=== PATIENT | female | born 1970 | race Caucasian/White ===

== ENCOUNTER 2019-11-19 10:34 | Emergency (ER) | payer BC ==
[2019-11-19 11:00] LABS: #Basophils 0.1 thou/uL (0.0-0.2); #Eosinphils 1.6 thou/uL (0.0-0.7); #Lymphocytes 3.9 thou/uL (1.20-3.40); #Monocytes 1.2 thou/uL (0.11-0.59); #Neutrophils 7.2 thou/uL (1.40-6.50); %Basophils 0.9 % (0.0-1.0); %Eosinophils 11.4 % (0.0-10.0); %Lymphocytes 27.5 % (21.0-51.0); %Monocytes 8.9 % (0.0-10.0); %Neutrophils 51.3 % (42.0-75.0); Hemoglobin 12.6 g/dL (12.0-16.0); Mean Corpuscular HGB CONC 32.5 g/dL (32.0-36.0); Mean Corpuscular Hemoglobin 27.1 pg (27.0-31.0); Mean Corpuscular Volume 83.4 fL (78.0-98.0); Mean Platelet Volume 8.2 fL (7.4-10.4); Platelet Count 270 thou/uL (130-400); RBC Distribution Width 15.2 % (11.5-14.5); Red Blood Cell (RBC) Count 4.66 mill/uL (4.20-5.40)
--- NOTE | 2019-11-19 11:00 | RAD ---
Portable frontal chest radiograph: 11/19/2019 COMPARISON: None HISTORY: COPD exacerbation, wheezing FINDINGS: Fusion hardware of lower cervical spine noted. No pneumothorax or pleural fluid. No focal c onsolidation or alveolar edema. Mild pulmonary hyperinflation suggests air trapping. IMPRESSION: No focal consolidation or alveolar edema.
[2019-11-19 11:03] LABS: Actual Bicarbonate (HCO3a) 26.4 mEq/L (22-28); Analyzer IN Cardio ER; Base Excess (BEa) 1.3 mEq/L (-2.0 to +3.0); CO2 Tension 43.6 mmHg (35.0-45.0); Carboxyhemoglobin (COHb) 0.4 gm% (0.0-3.0); Hemoglobin (Hb) 13.2 g/dL (12.0-16.0); O2 Tension (PaO2) 66.1 mmHg (80.0-100.0); Potassium - ABG Lab 4.28 mmol/L (3.70-5.30)
[2019-11-19 11:07] LABS: Puncture Site L.R.
[2019-11-19] MEDS ORDERED: Acetaminophen 500 MG TAB ONE (11:12)
[2019-11-19 11:34] LABS: Albumin 3.9 g/dL (3.5-5.0)
[2019-11-19 11:35] LABS: Chloride 104 mmol/L (98-107); Potassium 4.7 mmol/L (3.5-5.1); Sodium 139 mmol/L (136-145)
[2019-11-19 11:36] LABS: Calcium 9.6 mg/dL (7.8-10.44); Globulin 3.2 g/dL (2.4-3.5); Glucose 109 mg/dL (70-105); Protein, Total 7.1 g/dL (6.0-8.3)
[2019-11-19 11:38] LABS: Bilirubin, Total 0.3 mg/dL (0.2-1.2); Carbon Dioxide 25 mmol/L (22-29)
[2019-11-19 11:39] LABS: Alkaline Phosphatase 70 U/L (40-110)
[2019-11-19 11:40] LABS: Calc. Creatinine Clearance 0 mL/min (70-130); Estimated GFR-MDRD 84
[2019-11-19 11:41] LABS: AST (SGOT) 17 U/L (5-34); BUN (Urea Nitrogen) 14 mg/dL (7.0-18.7)
[2019-11-19 11:42] LABS: ALT (SGPT) 21 U/L (8-55)
[2019-11-19 12:13] LABS: Anion Gap 15 mmol/L (10-20)
[2019-11-19 13:37] LABS: Bacteria/HPF None Seen HPF (None Seen); Bilirubin Negative (Negative); Blood, Urine Trace (Negative); Clarity Clear (Clear); Glucose, Urine (Dipstick) Normal (Negative); Leukocyte Negative Leu/uL (Negative); Nitrite Negative (Negative); Protein, Urine (Dipstick) Negative (Neg-Trace); Squamous Epithelial 0-3 HPF (0-3); Urobilinogen Normal mg/dL (Less than 2); WBC/HPF 0-3 HPF (0-3)
== END 2019-11-19 14:03 | disposition home or self-care (01) ==
LOC: ERS 10:34
DX: J44.1 Chronic obstructive pulmonary disease with (acute) exacerbation (principal); I10 Essential (primary) hypertension; I25.2 Old myocardial infarction; E78.00 Pure hypercholesterolemia, unspecified; F41.9 Anxiety disorder, unspecified; Z79.899 Other long term (current) drug therapy
CPT/HCPCS: 36415; 71045; 80053; 81003; 81015; 82805; 83605; 83880; 84484; 85025; 87040; 93005; 94660

== ENCOUNTER 2019-11-27 04:32 | Inpatient (IN) | payer BC, MEDICARE ==
[2019-11-27] MEDS ORDERED: Albuterol Sulfate 2.5 mg/0.5 ml Neb ONE (04:53)
[2019-11-27] MEDS ORDERED: methylPREDNISolone Sod Succ/PF 125 MG/2 ML VIAL ONE (04:55)
[2019-11-27 05:13] LABS: #Basophils 0.1 thou/uL (0.0-0.2); #Eosinphils 1.3 thou/uL (0.0-0.7); #Lymphocytes 4.5 thou/uL (1.20-3.40); #Monocytes 1.5 thou/uL (0.11-0.59); #Neutrophils 6.3 thou/uL (1.40-6.50); %Basophils 0.9 % (0.0-1.0); %Eosinophils 9.7 % (0.0-10.0); %Lymphocytes 32.6 % (21.0-51.0); %Monocytes 11.2 % (0.0-10.0); %Neutrophils 45.6 % (42.0-75.0); Hemoglobin 11.5 g/dL (12.0-16.0); Mean Corpuscular HGB CONC 30.7 g/dL (32.0-36.0); Mean Corpuscular Hemoglobin 25.6 pg (27.0-31.0); Mean Corpuscular Volume 83.3 fL (78.0-98.0); Mean Platelet Volume 7.8 fL (7.4-10.4); Platelet Count 330 thou/uL (130-400); RBC Distribution Width 15.5 % (11.5-14.5); Red Blood Cell (RBC) Count 4.48 mill/uL (4.20-5.40); White Blood Cell (WBC) Count 13.8 thou/uL (4.8-10.8)
[2019-11-27 05:35] LABS: ALT (SGPT) 21 U/L (8-55); AST (SGOT) 19 U/L (5-34); Albumin 3.8 g/dL (3.5-5.0); Alkaline Phosphatase 64 U/L (40-110); Anion Gap 16 mmol/L (10-20); BUN (Urea Nitrogen) 12 mg/dL (7.0-18.7); Bilirubin, Total 0.3 mg/dL (0.2-1.2); Calc. Creatinine Clearance 0 mL/min (70-130); Calcium 8.9 mg/dL (7.8-10.44); Carbon Dioxide 23 mmol/L (22-29); Chloride 106 mmol/L (98-107); Estimated GFR-MDRD 82; Globulin 3.2 g/dL (2.4-3.5); Glucose 99 mg/dL (70-105); Potassium 3.6 mmol/L (3.5-5.1); Sodium 141 mmol/L (136-145)
[2019-11-27] MEDS ORDERED: Albuterol Sulfate 2.5 mg/3 ml Neb ONE (06:15)
[2019-11-27] MEDS ORDERED: Acetaminophen 500 MG TAB ONE (06:20)
[2019-11-27 07:30] VITALS: BMI 27.9
--- NOTE | 2019-11-27 07:59 | RAD ---
PORTABLE CHEST: Date: 11/27/2019 HISTORY: Shortness of breath. History of COPD. COMPARISON: 11/19/2019. FINDINGS: Lungs are well aerated and appear clear of infiltrate. A nodular opacity overlying the right upper naima ng may correspond to an area of linear stranding or atelectasis seen extending to the pleural surface anteriorly on CT of 09/28/2019. Heart and mediastinum unremarkable. Vasculature normal. IMPRESSION: No evidence of acute infiltrate. A nodular opacity overlies the right upper lung and correlation is m darby to recent CT of 09/28/2019 as noted above. POS: [facility]
[2019-11-27] MEDS ORDERED: Ondansetron ODT 4 MG TAB PO PRN (08:48)
[2019-11-27] MEDS ORDERED: Albuterol Sulfate 2.5 mg/3 ml Neb NEB PRN (08:51)
[2019-11-27] MEDS ORDERED: Non-Formulary Item 1 EACH (Estradiol [Estradiol] 2 MG) PO SCH (09:00)
[2019-11-27] MEDS ORDERED: METHOCARBAMOL 750 MG PO SCH (09:00)
[2019-11-27] MEDS: Sodium Chloride 0.9% 1,000 ML IV SCH ×2 (09:56→23:19)
[2019-11-27] MEDS: Estradiol 1 MG TAB PO SCH (09:56)
[2019-11-27] MEDS: guaiFENesin/DM ER PO SCH ×2 (09:57→22:04)
[2019-11-27] MEDS: Morphine ER 15 MG TAB PO SCH ×3 (09:57→23:20)
[2019-11-27] MEDS: Montelukast Sodium 10 mg Tablet PO SCH (09:57)
[2019-11-27] MEDS: Carvedilol 6.25 MG TAB PO SCH (09:57)
[2019-11-27] MEDS: DULoxetine 30 MG CAP PO SCH (09:58)
[2019-11-27] MEDS: Sulfameth/Trimethoprim DS 800-160mg TAB PO SCH ×2 (09:59→22:04)
[2019-11-27] MEDS: methylPREDNISolone Sod Succ 40 MG VIAL IVP SCH ×3 (10:50→23:21)
--- NOTE | 2019-11-27 13:47 | HP ---
CHIEF COMPLAINT: Shortness of breath and wheezing. HISTORY OF PRESENT ILLNESS: The patient is a 49-year-old female with acute onset of shortness of breath. Apparently, she started coughing a couple of days ago without fever or chills. She got very short of breath this morning around 3 o'clock, and she came to the emergency room for further evaluation. She was found to have a lot of wheezing. She was treated, but she did not feel like she was ready to go back home since the treatment she received in the emergency room did not help her much, so decision was made about keeping her in the hospital for observation. She had similar episodes of shortness of breath before. Apparently, she started having some pain and discomfort in the left armpit where she had previously MRSA infection. She started taking clindamycin which she had at home for that approximately 4 days ago. She had some chest tightness, but not any sharp pain. She is not able to cough up anything. She has dry cough. She feels tired. She has continuous back pain since she had surgery on her lower back. PAST MEDICAL HISTORY: 1. Hypertension. 2. Coronary artery disease. 3. Hyperlipidemia. 4. COPD. 5. Sleep apnea. 6. Left armpit MRSA skin infection. PAST SURGICAL HISTORY: 1. Hysterectomy. 2. Tonsillectomy. 3. Appendectomy. 4. Bladder suspension. 5. Low back surgery. 6. Migraine headaches. HOME MEDICATIONS: 1. Cymbalta 30 mg once a day. 2. Morphine extended-release tablets 15 mg 3 times a day. 3. Robaxin 750 mg 3 times a day. 4. Montelukast 10 mg once a day. 5. Estradiol 10 mg once a day. 6. Mirapex 0.5 mg four tablets once a day. 7. Carvedilol 6.25 mg twice a day. 8. Clindamycin 300 mg twice a day. 9. The patient finished Medrol Dosepak approximately 2 to 3 days ago. FAMILY HISTORY: Father had cardiomyopathy and he at the age of 92, and mother had coronary artery disease and COPD and she in her 90s. ALLERGIES: MULTIPLE; CLARITIN, DOXYCYCLINE, GEODON, HALDOL, KETAMINE, KETORALAC, LEVAQUIN, PENICILLINS, TORADOL, AND ZIPRASIDONE. SOCIAL HISTORY: She used to smoke approximately 1 pack of cigarettes per day. She quit in September 2019. She has been smoking approximately for 40+ years. REVIEW OF SYSTEMS: All 14 systems were reviewed and they are negative except for symptoms mentioned in HPI. PRIMARY CARE PHYSICIAN: [facility]. Her surrogate decision maker is her , Juanito Michelle. PHYSICAL EXAMINATION: GENERAL: She is not in any significant distress, but she has significant amount of wheezing, which is audible without any stethoscope. VITAL SIGNS: Her blood pressure is 135/80, pulse is 86, respiratory rate is 20, and O2 saturation is 94% on room air, and temperature is 97.9. HEENT: Head is atraumatic and normocephalic. Eyes are PERRLA. Sclerae are nonicteric. Oral mucosa is somewhat dry. NECK: Supple. LUNGS: Bilateral wheezing present. No crackles. HEART: S1 and S2 normal. No S3. No S4. ABDOMEN: Nontender and nondistended. Bowel sounds are present. No organomegaly. EXTREMITIES: No clubbing, cyanosis or edema. NEUROLOGICAL: She is alert and oriented x4. There is no any motor or sensory deficits. LABORATORY DATA: Labs showed white count of 13.8, hemoglobin of 11.5, hematocrit of 37.3, and platelet count of 330,000. Normal chemistry. Troponin I less than 0.010. IMAGING STUDIES: Chest x-ray personally reviewed by me showed no acute cardiopulmonary disease. Also, radiologist reported some nodular opacity in the right upper lung, which was confirmed correlating with a CT scan which was done in September 2019. EKG personally reviewed by me showed normal sinus rhythm with ventricular rate of 88 beats per minute, no ischemic changes. IMPRESSION: 1. Dyspnea, most likely exacerbation of chronic obstructive pulmonary disease. 2. 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 3. Hypertension. 4. Hyperlipidemia. 5. History of previous myocardial infarction. 6. Coronary artery disease, mild per the patient's cardiac catheterization done by [facility]. 7. Anxiety. 8. Chronic back pain. 9. Sleep apnea. 10. Migraine headaches. PLAN: Admission for observation. Condition is fair. Activity, bedrest and bathroom privileges. IV normal saline at 75 mL/h. Low-salt diet. Solu-Medrol 40 mg IV push every 6 hours. Albuterol and Atrovent, DuoNebs q.4 inhalations, Bactrim DS one tablet twice a day, and albuterol p.r.n. q.4 hours inhalations. DVT prophylaxis with SCDs and Lovenox. The patient is going to follow up with Dr. Ryan, her floor nurse, after the discharge, and the right upper lobe nodule will be addressed during this visit, and we are going to continue her home medications except for clindamycin. Bactrim should cover both left armpit MRSA infection and COPD exacerbation. Job ID: [id number]
[2019-11-27] MEDS: Methocarbamol 500 MG TAB PO SCH ×2 (14:20→22:06)
[2019-11-27] MEDS: diphenhydrAMINE 25 MG CAP PO PRN ×2 (16:57→22:07)
[2019-11-27] MEDS ORDERED: [UNRECOGNIZED DRUG - OTHER] PO SCH (21:00)
[2019-11-27] MEDS ORDERED: MELATONIN PO SCH ×2 (21:00)
[2019-11-27] MEDS ORDERED: PYRIDOXINE HCL PO SCH ×2 (21:00)
[2019-11-27] MEDS: traZODone HCl 150 MG TAB PO SCH (22:05)
[2019-11-27] MEDS: Pramipexole Di-HCl 1 MG TAB PO SCH (22:07)
[2019-11-27] MEDS ORDERED: Methyl Salicylate/Menthol 85 GM TUBE TOP PRN (23:05)
[2019-11-27] MEDS ORDERED: Lorazepam 0.5 MG TAB PO SCH (23:15)
[2019-11-28] MEDS: diphenhydrAMINE 25 MG CAP PO PRN ×3 (03:37→20:47)
[2019-11-28 05:13] LABS: Anion Gap 14 mmol/L (10-20); BUN (Urea Nitrogen) 15 mg/dL (7.0-18.7); Calc. Creatinine Clearance 118 mL/min (70-130); Calcium 8.9 mg/dL (7.8-10.44); Carbon Dioxide 21 mmol/L (22-29); Chloride 107 mmol/L (98-107); Estimated GFR-MDRD 84; Glucose 123 mg/dL (70-105); Potassium 4.3 mmol/L (3.5-5.1); Sodium 138 mmol/L (136-145)
[2019-11-28 05:16] LABS: Band 1 % (5-11); Hemoglobin 10.8 g/dL (12.0-16.0); Hypochromia SLIGHT = 6-15 cells (100X) (0-5/hpf); Lymphocytes 4 % (21-51); MDiff Complete? YES; Mean Corpuscular HGB CONC 31.8 g/dL (32.0-36.0); Mean Corpuscular Hemoglobin 26.4 pg (27.0-31.0); Mean Corpuscular Volume 82.8 fL (78.0-98.0); Mean Platelet Volume 7.8 fL (7.4-10.4); Monocytes 2 % (0-10); Neutrophil 93 % (42-75); Platelet Count 345 thou/uL (130-400); Platelet Morphology Comment Appears Adequate; RBC Distribution Width 15.6 % (11.5-14.5); Red Blood Cell (RBC) Count 4.08 mill/uL (4.20-5.40); White Blood Cell (WBC) Count 16.2 thou/uL (4.8-10.8)
[2019-11-28] MEDS: methylPREDNISolone Sod Succ 40 MG VIAL IVP SCH ×3 (05:44→18:03)
[2019-11-28] MEDS: Morphine ER 15 MG TAB PO SCH ×3 (08:11→21:43)
[2019-11-28] MEDS: Methocarbamol 500 MG TAB PO SCH ×3 (08:13→20:47)
[2019-11-28] MEDS: Sulfameth/Trimethoprim DS 800-160mg TAB PO SCH ×2 (08:14→20:42)
[2019-11-28] MEDS: Montelukast Sodium 10 mg Tablet PO SCH (08:14)
[2019-11-28] MEDS: Enoxaparin Sodium 40 MG/0.4 ML SYRINGE SC SCH (08:14)
[2019-11-28] MEDS: Estradiol 1 MG TAB PO SCH (08:14)
[2019-11-28] MEDS: DULoxetine 30 MG CAP PO SCH (08:14)
[2019-11-28] MEDS: guaiFENesin/DM ER PO SCH ×2 (08:14→20:40)
[2019-11-28] MEDS: Carvedilol 6.25 MG TAB PO SCH (08:14)
[2019-11-28] MEDS ORDERED: Budesonide 0.5 MG/2 ML NEB INH SCH (10:30)
--- NOTE | 2019-11-28 10:31 | PRG ---
DATE OF SERVICE: 11/28/2019 SUBJECTIVE: The patient is seen and examined at the bedside. She is still wheezing. She noticed that she has to go to the bathroom and pee all the time. She was not able to sleep much last night, but she requires melatonin and she did not request any melatonin last night. OBJECTIVE: VITAL SIGNS: Blood pressure is 144/74, pulse is 78, temperature is 98.1, maximal temperature is 98.8, pulse oximetry is 95% on room air. HEENT: Her head is atraumatic and normocephalic. Eyes are PERRLA. Sclerae are nonicteric. Oral mucosa is moist. NECK: Supple. LUNGS: Bilateral wheezes, moderate all over in both lungs. HEART: S1 and S2, normal. No S3. No S4. ABDOMEN: Soft, nontender, nondistended. EXTREMITIES: No clubbing, cyanosis, or edema. NEUROLOGIC: She is alert and oriented x4. There are no any motor or sensory deficits. LABORATORY DATA: Labs showed white count of 16.2, hemoglobin of 10.8, hematocrit 33.8, platelet count is 345,000. Sodium of 138, potassium 4.3, chloride 107, CO2 of 21, BUN 15, creatinine 0.73, glucose 123, and calcium 8.9. IMPRESSION: 1. Acute on chronic dyspnea, exacerbation of chronic obstructive pulmonary disease, bronchitis type. 2. 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 3. Hypertension. 4. Hyperlipidemia. 5. History of previous myocardial infarction. 6. Coronary artery disease, mild per the patient's cardiac catheterization done by [facility]. 7. Anxiety. 8. Chronic back pain. 9. Sleep apnea. 10. Migraine headaches. PLAN: We will switch her to full admission. The patient is still wheezing. We will continue her IV Solu-Medrol. We will start her on an inhaled steroids. We will continue her Mucinex. Continue her Ativan. We will continue isolation for possible MRSA infection of the left armpit. Continue DuoNeb. Job ID: [id number]
[2019-11-28] MEDS: Docusate 100 MG CAP PO PRN (12:47)
[2019-11-28] MEDS: Budesonide 0.5 MG/2 ML NEB INH SCH (18:46)
[2019-11-28] MEDS: Pramipexole Di-HCl 1 MG TAB PO SCH (20:40)
[2019-11-28] MEDS: traZODone HCl 150 MG TAB PO SCH (20:41)
[2019-11-28] MEDS ORDERED: Lorazepam 0.5 MG TAB PO PRN (23:02)
[2019-11-28] MEDS ORDERED: Melatonin 3 MG TAB PO SCH (23:15)
[2019-11-29] MEDS: methylPREDNISolone Sod Succ 40 MG VIAL IVP SCH ×4 (00:18→17:53)
[2019-11-29] MEDS: Budesonide 0.5 MG/2 ML NEB INH SCH ×2 (06:46→20:02)
[2019-11-29] MEDS: guaiFENesin/DM ER PO SCH ×2 (09:01→19:56)
[2019-11-29] MEDS: Morphine ER 15 MG TAB PO SCH ×3 (09:01→21:55)
[2019-11-29] MEDS: Sulfameth/Trimethoprim DS 800-160mg TAB PO SCH ×2 (09:01→19:55)
[2019-11-29] MEDS: DULoxetine 30 MG CAP PO SCH (09:01)
[2019-11-29] MEDS: Enoxaparin Sodium 40 MG/0.4 ML SYRINGE SC SCH (09:03)
[2019-11-29] MEDS: Carvedilol 6.25 MG TAB PO SCH (09:03)
[2019-11-29] MEDS: Montelukast Sodium 10 mg Tablet PO SCH (09:04)
[2019-11-29] MEDS: Docusate 100 MG CAP PO PRN (09:17)
[2019-11-29] MEDS: Estradiol 1 MG TAB PO SCH (10:50)
[2019-11-29] MEDS: Methocarbamol 500 MG TAB PO SCH ×3 (10:51→19:57)
[2019-11-29] MEDS: diphenhydrAMINE 25 MG CAP PO PRN ×2 (12:23→20:09)
--- NOTE | 2019-11-29 12:34 | PRG ---
DATE OF SERVICE: 11/29/2019 SUBJECTIVE: The patient is seen and examined at the bedside. She started coughing up some phlegm and she feels somewhat better. Her appetite is very good. She did not have any bowel movement yet, but she is back on her stool softener. OBJECTIVE: VITAL SIGNS: Blood pressure is 135/88, pulse is 71, respiratory rate is 16, temperature is 98.6, and O2 saturation is 94% on room air. HEENT: Head is atraumatic and normocephalic. Eyes are PERRLA. Sclerae are nonicteric. Oral mucosa is moist. NECK: Supple. LUNGS: Bilateral rales and wheezing present. HEART: S1 and S2 normal. No S3. No S4. No any murmur. ABDOMEN: Soft, nontender. Bowel sounds are present. No organomegaly. EXTREMITIES: No clubbing, cyanosis, edema. NEUROLOGIC: She is alert and oriented x4. There is no any motor or sensory deficits. LABORATORY DATA: None today. IMPRESSION: 1. Acute on chronic dyspnea, exacerbation of chronic obstructive pulmonary disease, bronchitis type. 2. 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 3. Hypertension. 4. Hyperlipidemia. 5. History of previous myocardial infarction. 6. Coronary artery disease mild per the patient's cardiac catheterization done at [facility]. 7. Anxiety. 8. Chronic back pain. 9. Sleep apnea. 10. Migraine headaches. PLAN: To continue her IV steroids and inhaled steroids. Start her on p.r.n. Ativan. Continue isolation for MRSA. Continue DuoNebs and continue Mucinex. I think we need additional 24 maybe 48 hours to start coughing up more in secretion from her respiratory tract and she should be able to go home at this time. For now, she is admitted. Job ID: [id number]
[2019-11-29] MEDS: Lorazepam 0.5 MG TAB PO PRN (17:53)
[2019-11-29] MEDS: Pramipexole Di-HCl 1 MG TAB PO SCH (19:54)
[2019-11-29] MEDS: traZODone HCl 150 MG TAB PO SCH (19:55)
[2019-11-29] MEDS: Melatonin 3 MG TAB PO SCH (21:00)
[2019-11-30] MEDS: Melatonin 3 MG TAB PO SCH ×2 (00:10→22:43)
[2019-11-30] MEDS: methylPREDNISolone Sod Succ 40 MG VIAL IVP SCH ×5 (00:12→22:44)
[2019-11-30] MEDS: diphenhydrAMINE 25 MG CAP PO PRN ×3 (05:50→18:23)
[2019-11-30 06:22] LABS: #Basophils 0.1 thou/uL (0.0-0.2); #Lymphocytes 2.7 thou/uL (1.20-3.40); #Monocytes 1.3 thou/uL (0.11-0.59); #Neutrophils 12.3 thou/uL (1.40-6.50); %Basophils 0.4 % (0.0-1.0); %Eosinophils 0.1 % (0.0-10.0); %Lymphocytes 16.3 % (21.0-51.0); %Monocytes 8.1 % (0.0-10.0); %Neutrophils 75.1 % (42.0-75.0); Hemoglobin 11.6 g/dL (12.0-16.0); Mean Corpuscular HGB CONC 30.1 g/dL (32.0-36.0); Mean Corpuscular Hemoglobin 25.7 pg (27.0-31.0); Mean Corpuscular Volume 85.5 fL (78.0-98.0); Platelet Count 332 thou/uL (130-400); RBC Distribution Width 15.4 % (11.5-14.5); Red Blood Cell (RBC) Count 4.52 mill/uL (4.20-5.40); White Blood Cell (WBC) Count 16.3 thou/uL (4.8-10.8)
[2019-11-30] MEDS: Budesonide 0.5 MG/2 ML NEB INH SCH ×2 (07:55→20:26)
[2019-11-30] MEDS: guaiFENesin/DM ER PO SCH ×2 (08:32→20:55)
[2019-11-30] MEDS: Morphine ER 15 MG TAB PO SCH ×3 (08:32→20:54)
[2019-11-30] MEDS: DULoxetine 30 MG CAP PO SCH (08:32)
[2019-11-30] MEDS: Carvedilol 6.25 MG TAB PO SCH (08:33)
[2019-11-30] MEDS: Enoxaparin Sodium 40 MG/0.4 ML SYRINGE SC SCH (08:34)
[2019-11-30] MEDS: Sulfameth/Trimethoprim DS 800-160mg TAB PO SCH ×2 (08:34→20:54)
[2019-11-30] MEDS: Montelukast Sodium 10 mg Tablet PO SCH (08:34)
--- NOTE | 2019-11-30 09:21 | PRG ---
DATE OF SERVICE: 11/30/2019 SUBJECTIVE: The patient is seen and examined at the bedside. She started having more discomfort in the left armpit area, and she started coughing up more phlegm. She had small bowel movement. Her appetite is very good. OBJECTIVE: VITAL SIGNS: Blood pressure is 137/73, pulse is 69, temperature is 98.6, O2 saturation is 94% on room air. HEAD: Atraumatic and normocephalic. EYES: PERRLA. Sclerae are nonicteric. ENT: Oral mucosa is moist. NECK: Supple. LUNGS: Bilateral wheezing and rales still present quite significantly, maybe slightly less than yesterday, but still very significant, requiring IV steroids. HEART: S1, S2 normal. No S3. No S4. ABDOMEN: Soft, nontender, nondistended. EXTREMITIES: No clubbing, cyanosis, or edema. Her left armpit shows enlargement of a few areas with some erythema and now present over those areas, tender to touch, but not open, not draining anything. NEUROLOGIC: She is alert and oriented x4. There are no any motor or sensory deficits. LABORATORY DATA: Labs showed white count of 16.3, hemoglobin 11.6, hematocrit 38.7, platelet count is 332,000. IMPRESSION: 1. Acute on chronic dyspnea, exacerbation of chronic obstructive pulmonary disease with bronchitis type. 2. Left armpit most likely methicillin-resistant Staphylococcus aureus infection. We will get general surgeon to take a look at this area and make decision whether this needs to be opened and drained, but she has a history of previous MRSA infection in this area. 3. Hypertension. 4. Hyperlipidemia. 5. History of previous myocardial infarction. 6. Coronary artery disease which is mild per the patient's cardiac catheterization, this was done at [facility]. 7. Anxiety. 8. Chronic back pain. 9. Sleep apnea. 10. Migraine headaches, chronic, stable. PLAN: Yesterday, her IV steroids dose was decreased. She will continue on her inhaled steroids. She will continue on DuoNebs and Mucinex. We will have general surgeon, Dr. Morris, to stop by and look at her left armpit and see whether this needs to be open and drained. We will continue her Bactrim and most likely she will be able to go home in the next 24-48 hours. Job ID: [id number]
[2019-11-30] MEDS: Lorazepam 0.5 MG TAB PO PRN ×2 (10:47→22:43)
[2019-11-30] MEDS: Estradiol 1 MG TAB PO SCH (10:48)
[2019-11-30] MEDS: Methocarbamol 500 MG TAB PO SCH ×3 (10:48→20:55)
[2019-11-30] MEDS: Vancomycin HCl 1.25 GM in Sodium Chloride 0.9% 250 ML 250 ML IVPB SCH ×2 (10:50→22:47)
--- NOTE | 2019-11-30 12:35 | CON ---
DATE OF CONSULTATION: CHIEF COMPLAINT: Left axillary infection. HISTORY OF PRESENT ILLNESS: The patient is a 49-year-old female, who has had multiple I and D's of subcutaneous abscesses due to MRSA. She reports a 7-day history of infection in her left axilla. She has tried to drain it herself with a needle. No drainage. PAST MEDICAL HISTORY: Hypertension, hyperlipidemia, coronary artery disease, COPD, sleep apnea, and MRSA. PAST SURGICAL HISTORY: Hysterectomy, tonsil and adenoidectomy, appendectomy, and bladder suspension. She recently had back surgery in September. MEDICATIONS: 1. Cymbalta. 2. Morphine. 3. Robaxin. 4. Montelukast. 5. Estradiol. 6. Mirapex. 7. Carvedilol. 8. Clindamycin. 9. Solu-Medrol. ALLERGIES: SHE HAS ALLERGIES TO DOXYCYCLINE, HALDOL, KETAMINE, GEODON, LEVAQUIN, PENICILLINS, TORADOL, AND ZIPRASIDONE. SOCIAL HISTORY: She quit smoking in September. She is . Occasional alcohol. PHYSICAL EXAMINATION: VITAL SIGNS: Temperature 98.6, pulse 69, and blood pressure 137/73. GENERAL: She has stigmata of steroid use with a round face and excessive adipose distribution. LUNGS: She has some wheezing. HEART: Regular rate and rhythm. ABDOMEN: Obese, soft, and nontender. EXTREMITIES: She has about 7 small carbuncles in the hair-bearing area of her left axilla. There is no definite fluctuance. There is some mild cellulitis. ASSESSMENT: Staph folliculitis of the left axilla. PLAN: The patient has just had a regular diet. I recommend we treat her with vancomycin and reassess in the morning and keep her n.p.o. after midnight, possible I and D of carbuncles under anesthesia. Job ID: [id number]
[2019-11-30] MEDS: traZODone HCl 150 MG TAB PO SCH (20:53)
[2019-11-30] MEDS: Pramipexole Di-HCl 1 MG TAB PO SCH (20:53)
[2019-11-30] MEDS ORDERED: Vancomycin HCl 1.25 GM in Sodium Chloride 0.9% 250 ML 300 ML IVPB SCH (21:00)
[2019-12-01] MEDS: Carvedilol 6.25 MG TAB PO SCH (05:37)
[2019-12-01] MEDS: methylPREDNISolone Sod Succ 40 MG VIAL IVP SCH ×4 (05:37→23:23)
[2019-12-01] MEDS: Budesonide 0.5 MG/2 ML NEB INH SCH ×2 (07:46→19:16)
[2019-12-01] MEDS ORDERED: Fentanyl 100 MCG/2 ML VIAL ONE ×3 (07:53→10:36)
[2019-12-01] MEDS: Enoxaparin Sodium 40 MG/0.4 ML SYRINGE SC SCH (09:13)
[2019-12-01] MEDS ORDERED: Bupivacaine 0.25% HCL 30 ML VIAL ONE (09:40)
[2019-12-01] MEDS ORDERED: Lidocaine 1% w/Epinephrine 1:100K 20 ML VIAL ONE (09:40)
[2019-12-01] MEDS ORDERED: Dexamethasone 20 MG/5 ML VIAL ONE (09:41)
[2019-12-01] MEDS ORDERED: Lidocaine 1% PF 5 ML VIAL ONE (09:41)
[2019-12-01] MEDS ORDERED: PROPOFOL 200 MG/20 ML VIAL ONE (09:41)
[2019-12-01] MEDS ORDERED: Ondansetron PF 4 MG/2 ML Vial ONE (09:41)
[2019-12-01] MEDS ORDERED: HYDROcodone/Acetaminophen 5/325 mg Tablet PO PRN (10:25)
[2019-12-01] MEDS ORDERED: Morphine 4 MG/ML VIAL SLOW IVP PRN (10:25)
[2019-12-01] MEDS ORDERED: Promethazine HCl 25 MG/ML VIAL ONE (10:46)
[2019-12-01] MEDS: Vancomycin HCl 1.25 GM in Sodium Chloride 0.9% 250 ML 250 ML IVPB SCH ×2 (11:21→23:23)
[2019-12-01] MEDS: Methocarbamol 500 MG TAB PO SCH ×3 (11:22→20:35)
[2019-12-01] MEDS: DULoxetine 30 MG CAP PO SCH (11:22)
[2019-12-01] MEDS: Estradiol 1 MG TAB PO SCH (11:23)
[2019-12-01] MEDS: Morphine ER 15 MG TAB PO SCH ×3 (11:23→20:36)
[2019-12-01] MEDS: guaiFENesin/DM ER PO SCH ×2 (11:24→20:36)
[2019-12-01] MEDS: Montelukast Sodium 10 mg Tablet PO SCH (11:24)
[2019-12-01] MEDS: Sulfameth/Trimethoprim DS 800-160mg TAB PO SCH ×2 (11:24→20:35)
[2019-12-01] MEDS: diphenhydrAMINE 25 MG CAP PO PRN ×2 (11:33→15:38)
[2019-12-01] MEDS ORDERED: Ondansetron HCl/PF 4 MG/2 ML Vial IVP PRN (11:53)
[2019-12-01] MEDS ORDERED: Promethazine HCl 25 MG/ML VIAL IM PRN (11:53)
[2019-12-01] MEDS ORDERED: Promethazine HCl 25 MG/ML VIAL SLOW IVP PRN (11:53)
[2019-12-01] MEDS: HYDROcodone/Acetaminophen 5/325 mg Tablet PO PRN ×2 (12:58→18:01)
[2019-12-01] MEDS: Lorazepam 0.5 MG TAB PO PRN ×3 (12:59→23:23)
--- NOTE | 2019-12-01 13:03 | PDOC.HOSPP ---
- Subjective Encounter Date: 12/01/19 Encounter Time: 13:02 Subjective: breathing looning up a bit - Objective Vital Signs & Weight: Vital Signs (12 hours) Temp Pulse Resp BP BP BP Pulse Ox 12/01/19 12:05 95 12/01/19 11:32 56 L 16 95 12/01/19 11:18 97.5 F L 55 L 136/77 95 12/01/19 07:44 63 16 93 L 12/01/19 05:37 135/74 12/01/19 04:58 98.2 F 69 18 135/74 96 Weight Admit Weight 178 lb 6 oz Weight 178 lb 6 oz Result Diagrams: 11/30/19 06:11 11/28/19 04:41 Hospitalist ROS - Medication Medications: Active Medications Generic Name Dose Route Start Last Admin Trade Name Freq PRN Reason Stop Dose Admin Albuterol Sulfate 2.5 mg 11/27/19 08:51 11/28/19 04:59 Ventolin NEB 2.5 mg [id number] PRN Administration Wheezing Albuterol/Ipratropium 3 ml 11/27/19 11:00 12/01/19 11:32 Duoneb NEB 3 ml [id number] TRISH Administration Budesonide 0.5 mg 11/28/19 18:30 12/01/19 07:46 Pulmicort Neb Solution INH 0.5 mg BID-RT TRISH Administration Carvedilol 6.25 mg 11/27/19 09:00 12/01/19 05:37 Coreg PO 6.25 mg DAILY TRISH Administration Diphenhydramine HCl 25 mg 11/27/19 15:21 12/01/19 11:33 Benadryl PO 25 mg Q4H PRN Administration Itching Docusate Sodium 100 mg 11/28/19 12:37 11/29/19 09:17 Colace PO 100 mg DAILYPRN PRN Administration Constipation Duloxetine HCl 30 mg 11/27/19 09:00 12/01/19 11:22 Cymbalta PO 30 mg DAILY TRISH Administration Enoxaparin Sodium 40 mg 11/28/19 09:00 12/01/19 09:13 Lovenox SC Not Given 0900 TRISH Estradiol 2 mg 11/27/19 09:00 12/01/19 11:23 Estrace PO 2 mg DAILY TRISH Administration Guaifenesin/Dextromethorphan 2 tab 11/27/19 09:00 12/01/19 11:24 Mucinex Dm PO 2 tab Q12HR TRISH Administration Vancomycin HCl 1.25 gm/ Sodium 250 mls @ 166.667 mls/hr 11/30/19 11:00 11:21 Chloride IVPB 250 mls 1100,2300 TRISH Administration Lorazepam 0.5 mg 11/29/19 11:36 11/30/19 22:43 Ativan PO 0.5 mg Q4H PRN Administration Anxiety Melatonin 3 mg 11/29/19 21:00 11/30/19 22:43 Melatonin PO 3 mg HS TRISH Administration Menthol/Methyl Salicylate 0 gm 11/27/19 23:05 11/27/19 23:20 Muscle Rub Cream (Bengay) TOP 1 gm ASDIR PRN Administration Muscle Pain Methocarbamol 750 mg 11/27/19 15:00 12/01/19 11:22 Robaxin PO 750 mg TID TRISH Administration Methylprednisolone Sodium Succinate 20 mg 11/29/19 12:00 12/01/19 11:25 Solu-Medrol IVP 20 mg Q6HR TRISH Administration Montelukast Sodium 10 mg 11/27/19 09:00 12/01/19 11:24 Singulair PO 10 mg DAILY TRISH Administration Morphine Sulfate 15 mg 11/27/19 09:00 12/01/19 11:23 Ms Contin PO 15 mg TID TRISH Administration Pramipexole Dihydrochloride 2 mg 11/27/19 21:00 11/30/19 20:53 Mirapex PO 2 mg HS TRISH Administration Sodium Chloride 10 ml 11/27/19 21:00 12/01/19 11:25 Flush - Normal Saline IVF 10 ml Q12HR TRISH Administration Sodium Chloride 10 ml 11/27/19 09:26 11/28/19 18:05 Flush - Normal Saline IVF 10 ml PRN PRN Administration Saline Flush Trazodone HCl 50 mg 11/27/19 21:00 11/30/19 20:53 Desyrel PO 50 mg HS TRISH Administration Trimethoprim/Sulfamethoxazole 1 tab 11/27/19 09:00 12/01/19 11:24 Bactrim Ds PO 1 tab BID TRISH Administration - Exam General Appearance: awake alert Neck: no JVD Heart: RRR, no murmur Respiratory - other findings: hyperresonant , tight exp wheezes Gastrointestinal: soft, normal bowel sounds Extremities: no edema Neurological - other findings: bandaged left axilla Hosp A/P (1) COPD exacerbation Code(s): J44.1 - CHRONIC OBSTRUCTIVE PULMONARY DISEASE W (ACUTE) EXACERBATION Status: Acute (2) Acute respiratory failure with hypoxia Code(s): J96.01 - ACUTE RESPIRATORY FAILURE WITH HYPOXIA Status: Acute (3) Abscess of axilla, left Code(s): L02.412 - CUTANEOUS ABSCESS OF LEFT AXILLA Status: Acute - Plan cont nebs, iv steroids, O2, etc cont iv vancomycin pending wound C&S
--- NOTE | 2019-12-01 15:23 | OP ---
DATE OF PROCEDURE: 12/01/2019 PREOPERATIVE DIAGNOSIS: Left axillary abscess. PROCEDURE PERFORMED: Incision and drainage x5, left axilla. INDICATIONS: This is a 49-year-old female with history of multiple MRSA infections who developed a painful swelling in the left axilla, did not respond to antibiotics. FINDINGS: Five small abscesses, one of which was about 2 cm x 1 cm containing thick purulent fluid. Then, there were 4 others that were smaller, about 5 mm in diameter with small amounts of purulent fluid. DESCRIPTION OF PROCEDURE: After informed consent was obtained, the patient was taken to the operating room, given general mask anesthesia, placed in supine position. Her axilla was prepped and draped in usual fashion. Local anesthesia infiltrated subcutaneously and deep with Marcaine. An elliptical incision was performed in the largest one releasing about 5 mL of thick purulent fluid. This was sent for culture. The ellipse was unroofed. Loculations were broken up with a hemostat. Hemostasis achieved with electrocautery. The wound thoroughly irrigated. Then, small stab wounds were performed on each of the other 4 smaller abscesses releasing purulent fluid. There were dilated with the hemostat and irrigated. A sterile bandage applied. The patient tolerated the procedure well, transferred to Recovery in good condition. Sponge and needle count verified correct x2. Job ID: [id number]
[2019-12-01] MEDS: Pramipexole Di-HCl 1 MG TAB PO SCH (20:34)
[2019-12-01] MEDS: Melatonin 3 MG TAB PO SCH (20:35)
[2019-12-01] MEDS: traZODone HCl 150 MG TAB PO SCH (20:35)
[2019-12-01 22:32] LABS: Vancomycin, Trough 9.6 ug/mL
[2019-12-02] MEDS: methylPREDNISolone Sod Succ 40 MG VIAL IVP SCH ×2 (05:55→12:19)
[2019-12-02] MEDS: Vancomycin HCl 1.25 GM in Sodium Chloride 0.9% 250 ML 250 ML IVPB SCH ×2 (06:23→15:46)
[2019-12-02] MEDS: Budesonide 0.5 MG/2 ML NEB INH SCH (07:24)
[2019-12-02] MEDS: Lorazepam 0.5 MG TAB PO PRN ×2 (07:25→12:27)
[2019-12-02] MEDS: Methocarbamol 500 MG TAB PO SCH ×2 (07:25→14:51)
[2019-12-02] MEDS: Sulfameth/Trimethoprim DS 800-160mg TAB PO SCH (07:26)
[2019-12-02] MEDS: Morphine ER 15 MG TAB PO SCH ×2 (07:26→14:50)
[2019-12-02] MEDS: Montelukast Sodium 10 mg Tablet PO SCH (07:26)
[2019-12-02] MEDS: Carvedilol 6.25 MG TAB PO SCH (07:26)
[2019-12-02] MEDS: Enoxaparin Sodium 40 MG/0.4 ML SYRINGE SC SCH (07:27)
[2019-12-02] MEDS: DULoxetine 30 MG CAP PO SCH (07:27)
[2019-12-02] MEDS: guaiFENesin/DM ER PO SCH (07:27)
--- NOTE | 2019-12-02 12:11 | PDOC.HOSPP ---
- Subjective Encounter Date: 12/02/19 Encounter Time: 12:05 Subjective: sob ok, no fever, etc - Objective Vital Signs & Weight: Vital Signs (12 hours) Temp Pulse Resp BP BP Pulse Ox 12/02/19 10:42 68 16 95 12/02/19 08:00 96 12/02/19 07:40 97.6 F 86 16 143/78 H 96 12/02/19 07:26 135/74 12/02/19 07:24 83 18 96 Weight Admit Weight 178 lb 6 oz Weight 178 lb 6 oz I&O: 12/01/19 12/02/19 12/03/19 06:59 06:59 06:59 Intake Total 2450 240 Balance 2450 240 Result Diagrams: 11/30/19 06:11 11/28/19 04:41 Hospitalist ROS - Medication Medications: Active Medications Generic Name Dose Route Start Last Admin Trade Name Freq PRN Reason Stop Dose Admin Hydrocodone Bitart/Acetaminophen 2 tab 12/01/19 10:25 12/01/19 18:01 Mcwilliams 5/325 PO 2 tab Q4H PRN Administration Moderate to Severe Pain (6-10) Albuterol Sulfate 2.5 mg 11/27/19 08:51 11/28/19 04:59 Ventolin NEB 2.5 mg [id number] PRN Administration Wheezing Albuterol/Ipratropium 3 ml 11/27/19 11:00 12/02/19 10:42 Duoneb NEB 3 ml [id number] TRISH Administration Budesonide 0.5 mg 11/28/19 18:30 12/02/19 07:24 Pulmicort Neb Solution INH 0.5 mg BID-RT TRISH Administration Carvedilol 6.25 mg 11/27/19 09:00 12/02/19 07:26 Coreg PO 6.25 mg DAILY TRISH Administration Diphenhydramine HCl 25 mg 11/27/19 15:21 12/01/19 15:38 Benadryl PO 25 mg Q4H PRN Administration Itching Docusate Sodium 100 mg 11/28/19 12:37 11/29/19 09:17 Colace PO 100 mg DAILYPRN PRN Administration Constipation Duloxetine HCl 30 mg 11/27/19 09:00 12/02/19 07:27 Cymbalta PO 30 mg DAILY TRISH Administration Enoxaparin Sodium 40 mg 11/28/19 09:00 12/02/19 07:27 Lovenox SC 40 mg 0900 TRISH Administration Estradiol 2 mg 11/27/19 09:00 12/01/19 11:23 Estrace PO 2 mg DAILY TRISH Administration Guaifenesin/Dextromethorphan 2 tab 11/27/19 09:00 12/02/19 07:27 Mucinex Dm PO 2 tab Q12HR TRISH Administration Vancomycin HCl 1.25 gm/ Sodium 250 mls @ 166.667 mls/hr 12/01/19 23:00 06:23 Chloride IVPB 250 mls 0700,1500,2300 TRISH Administration Lorazepam 0.5 mg 11/29/19 11:36 12/02/19 07:25 Ativan PO 0.5 mg Q4H PRN Administration Anxiety Melatonin 3 mg 11/29/19 21:00 12/01/19 20:35 Melatonin PO 3 mg HS TRISH Administration Menthol/Methyl Salicylate 0 gm 11/27/19 23:05 11/27/19 23:20 Muscle Rub Cream (Bengay) TOP 1 gm ASDIR PRN Administration Muscle Pain Methocarbamol 750 mg 11/27/19 15:00 12/02/19 07:25 Robaxin PO 750 mg TID TRISH Administration Methylprednisolone Sodium Succinate 20 mg 11/29/19 12:00 12/02/19 05:55 Solu-Medrol IVP 20 mg Q6HR TRISH Administration Montelukast Sodium 10 mg 11/27/19 09:00 12/02/19 07:26 Singulair PO 10 mg DAILY TRISH Administration Morphine Sulfate 15 mg 11/27/19 09:00 12/02/19 07:26 Ms Contin PO 15 mg TID TRISH Administration Pramipexole Dihydrochloride 2 mg 11/27/19 21:00 12/01/19 20:34 Mirapex PO 2 mg HS TRISH Administration Sodium Chloride 10 ml 11/27/19 21:00 12/02/19 07:33 Flush - Normal Saline IVF 10 ml Q12HR TRISH Administration Sodium Chloride 10 ml 11/27/19 09:26 11/28/19 18:05 Flush - Normal Saline IVF 10 ml PRN PRN Administration Saline Flush Trazodone HCl 50 mg 11/27/19 21:00 12/01/19 20:35 Desyrel PO 50 mg HS TRISH Administration Trimethoprim/Sulfamethoxazole 1 tab 11/27/19 09:00 12/02/19 07:26 Bactrim Ds PO 1 tab BID TRISH Administration - Exam General Appearance: awake alert Neck: no JVD Heart: RRR, no murmur Respiratory - other findings: mild sonorous wheezes Gastrointestinal: soft, normal bowel sounds Extremities: no edema Hosp A/P (1) COPD exacerbation Code(s): J44.1 - CHRONIC OBSTRUCTIVE PULMONARY DISEASE W (ACUTE) EXACERBATION Status: Acute (2) Acute respiratory failure with hypoxia Code(s): J96.01 - ACUTE RESPIRATORY FAILURE WITH HYPOXIA Status: Acute (3) Abscess of axilla, left Code(s): L02.412 - CUTANEOUS ABSCESS OF LEFT AXILLA Status: Acute - Plan discuss DC with Gen Surg
--- NOTE | 2019-12-02 12:19 | PRG ---
DATE OF SERVICE: 12/02/2019 SUBJECTIVE: The patient is doing well after I and D of axilla. The pain is well controlled. OBJECTIVE: VITAL SIGNS: Temperature 97.6, pulse 68, blood pressure 143/78. SKIN: Clean. There is no evidence of cellulitis. Minimal soft tissue swelling. ASSESSMENT: Doing well. PLAN: Follow up with me in 2 weeks. Job ID: [id number]
[2019-12-02] MEDS: Estradiol 1 MG TAB PO SCH (12:27)
[2019-12-02 14:58] VITALS: BP 149/94; TEMP 98.8
--- NOTE | 2019-12-02 15:19 | DIS ---
DATE OF ADMISSION: 11/27/2019 DATE OF DISCHARGE: 12/02/2019 PRIMARY CARE PROVIDER: Bree Dobson. FINAL DIAGNOSES: 1. Chronic obstructive pulmonary disease with acute exacerbation. 2. Hypertension. 3. Abscess of the left axilla. 4. Acute respiratory failure with hypoxemia. DISCHARGE MEDICATIONS: 1. Albuterol inhaler 2 puffs q.4 hours p.r.n. 2. Mirapex 2 mg at bedtime. 3. Morphine sulfate 15 mg p.o. t.i.d. 4. Methocarbamol 750 mg p.o. t.i.d. 5. Trazodone 50 mg at bedtime. 6. Singulair 10 mg a day. 7. Coreg 6.25 mg daily. 8. Estradiol 2 mg daily. 9. Cymbalta 30 mg a day. 10. Medrol Dosepak, start tomorrow. 11. Bactrim DS one tablet b.i.d. for 2 weeks, starting tomorrow. ALLERGIES: DOXYCYCLINE, HALOPERIDOL, KETAMINE, TORADOL, LEVAQUIN, CLARITIN, PENICILLINS, GEODON. CODE STATUS: Full. DIET: Regular. PENDING AT TIME OF DISCHARGE: Nothing. HOSPITAL COURSE: [facility] with shortness of breath and wheezing. She had been to the emergency room, treated, came back. She was also having some left pain, discomfort in her left armpit. She has a history of hypertension, coronary artery disease, dyslipidemia, COPD, and sleep apnea. She was treated aggressively with nebs, steroids, and antibiotics. Her left axilla was drained by Dr. Sam Morris on 12/01/2019, after seeing her in consultation on 11/30/2019. She is currently still wheezing a bit, but is really ready to go home. Dr. Morris recommended 2 weeks Septra DS. I noted that she was not on any home medicines for COPD, acute phase or chronic. I started her on albuterol and a Medrol Dosepak as she went home to improve things. I have asked her to follow up with her PCP in 3 days. Job ID: [id number]
== END 2019-12-02 15:36 | disposition home or self-care (01) | DRG 190 ==
LOC: ERS 04:32 → 2SW 06:28 → OBSVTOIN 06:28 → T4-B 11-28 17:34
PROVIDERS: ADMIT Hospitalist; ATTEND Hospitalist
PROC: 0X950ZZ Drainage of Left Axilla, Open Approach (ICD-10-PCS; principal; 2019-12-01)
DX: J44.1 Chronic obstructive pulmonary disease with (acute) exacerbation (principal); J96.01 Acute respiratory failure with hypoxia; L02.412 Cutaneous abscess of left axilla; I10 Essential (primary) hypertension; B95.62 Methicillin resistant Staphylococcus aureus infection as the cause of diseases classified elsewhere; G89.29 Other chronic pain; M54.9 Dorsalgia, unspecified; F41.9 Anxiety disorder, unspecified; I25.10 Atherosclerotic heart disease of native coronary artery without angina pectoris; G43.909 Migraine, unspecified, not intractable, without status migrainosus; E78.5 Hyperlipidemia, unspecified; G47.30 Sleep apnea, unspecified; Z90.710 Acquired absence of both cervix and uterus; Z88.1 Allergy status to other antibiotic agents; Z88.6 Allergy status to analgesic agent; Z98.890 Other specified postprocedural states; Z88.0 Allergy status to penicillin; Z82.49 Family history of ischemic heart disease and other diseases of the circulatory system; Z83.6 Family history of other diseases of the respiratory system; Z88.8 Allergy status to other drugs, medicaments and biological substances; Z87.891 Personal history of nicotine dependence; I25.2 Old myocardial infarction
CPT/HCPCS: 36415; 71045; 80048; 80053; 80202; 84484; 85007; 85025; 85027; 87070; 87077; 87186; 87205; 93005; 94640; 94644; 96374; J1100; J1650; J2001; J2405; J2550; J2704; J2920; J2930; J3010; J3370; J7050; J7611; J7620; J7626; Q0163; S0020

== ENCOUNTER 2019-12-14 22:48 | Emergency (ER) | payer BC, MEDICARE ==
[2019-12-14 23:05] LABS: #Basophils 0.1 thou/uL (0.0-0.2); #Eosinphils 0.1 thou/uL (0.0-0.7); #Lymphocytes 3.1 thou/uL (1.20-3.40); #Monocytes 2.2 thou/uL (0.11-0.59); #Neutrophils 13.8 thou/uL (1.40-6.50); %Basophils 0.5 % (0.0-1.0); %Eosinophils 0.3 % (0.0-10.0); %Lymphocytes 15.9 % (21.0-51.0); %Monocytes 11.4 % (0.0-10.0); %Neutrophils 71.8 % (42.0-75.0); Hemoglobin 11.2 g/dL (12.0-16.0); Mean Corpuscular HGB CONC 31.2 g/dL (32.0-36.0); Mean Corpuscular Hemoglobin 26.1 pg (27.0-31.0); Mean Corpuscular Volume 83.6 fL (78.0-98.0); Mean Platelet Volume 8.1 fL (7.4-10.4); Platelet Count 227 thou/uL (130-400); RBC Distribution Width 16.4 % (11.5-14.5); Red Blood Cell (RBC) Count 4.28 mill/uL (4.20-5.40); White Blood Cell (WBC) Count 19.2 thou/uL (4.8-10.8)
--- NOTE | 2019-12-14 23:20 | RAD ---
XR Chest 1 View Portable HISTORY: Shortness of breath COMPARISON: 11/27/2019 FINDINGS: The heart size is normal. The lungs are well expanded without focal areas of consolidation, pneumothorax or pleural effusions. IMPRESSION: No radiographic evidence of acute cardiopulmonary process.
[2019-12-14 23:28] LABS: ALT (SGPT) 21 U/L (8-55); AST (SGOT) 17 U/L (5-34); Albumin 3.9 g/dL (3.5-5.0); Alkaline Phosphatase 66 U/L (40-110); Anion Gap 12 mmol/L (10-20); BUN (Urea Nitrogen) 21 mg/dL (7.0-18.7); Bilirubin, Total 0.3 mg/dL (0.2-1.2); Calc. Creatinine Clearance 0 mL/min (70-130); Calcium 9.4 mg/dL (7.8-10.44); Carbon Dioxide 29 mmol/L (22-29); Chloride 104 mmol/L (98-107); Estimated GFR-MDRD 73; Globulin 3.3 g/dL (2.4-3.5); Glucose 81 mg/dL (70-105); Potassium 4.1 mmol/L (3.5-5.1); Protein, Total 7.2 g/dL (6.0-8.3); Sodium 141 mmol/L (136-145)
--- NOTE | 2019-12-15 08:34 | MRI ---
PRELIMINARY REPORT/[facility]/EMERGENCY AFTER HOURS PROCEDURE: EXAM: MR Lumbar Spine Without Intravenous Contrast. CLINICAL HISTORY: C/O SOB WITH LOWER BACK PAIN RADIATING DOWN LT LEG. DENIES INJURY. H/X SURGERY IN SEPTEMBER. TECHNIQUE: Magnetic resonance images of the lumbar spine without intravenous contrast in multiple planes. CONTRAST: Without COMPARISON: None provided. FINDINGS: VERTEBRAE: No acute fracture or focal osseous lesion. 4 mm anterolisthesis of L4 on L5. Spinal fusion hardware consisting of transpedicular screws with vertical connecting rods bilaterally spanning the vertebral bodies of L2-L5. Posterior laminectomy is at L2, L3 and L4. ALIGNMENT: Bony alignment is anatomic. SPINAL CORD AND CAUDA EQUINA: No abnormal signal or mass. DEGENERATIVE FINDINGS: L1-L2: Mild facet arthrosis and ligamentum hypertrophy. No central canal or f oraminal stenosis. No significant testicular loss. L2-L3: No central canal or foraminal stenosis. No significant height loss. L3-L4: No central canal or foraminal stenosis. No significant disc height loss. L4-L5: Dark T2 and T1 signal in the region of the nerve foramina resulting in mild right and moderate to severe left neuroforaminal narrowing. No spinal canal stenosis. Disc desiccation. L5-S1: No central canal or foraminal stenosis. Unremarkable intervertebral disc. PARASPINAL SOFT TISSUES: There is a fluid collection within the laminectomy bed posterior to the vert ebral body of L3 and L4 which measures 6.7 x 2.7 x 1.8 cm (CC, AP, transverse). Signal characteristi cs within this fluid collection are simple and follow CSF although there is no clear or definite comm unication with the spinal canal. The borders are within and there is no significant mass-effect on t he spinal canal or adjacent soft tissues. IMPRESSION: 1. Postsurgical changes of laminectomy with posterior spinal fusion of L2-L5. 2. Dark signal within the neuroforamina of L4-L5 likely reflecting scarring/granulation tissue resul ting in moderate to severe left neuroforaminal narrowing. Correlate for radiculopathy. 3. Simple fluid collection within the laminectomy bed which is most compatible with a postoperative seroma. Superimposed infection is not entirely excluded but considered much less likely. If clinica l concern persists, consider contrast enhanced MRI. ELECTRONICALLY SIGNED BY: Denver Brewer M.D. Dec 15, 2019 1:08:45 AM DIRECTOR COMPENSATION This report is intended for review by the ordering physician only, in accordance of law. If you recei ve this report in error, please call [facility] at [phone]. FINAL REPORT LUMBAR SPINE MRI WITHOUT CONTRAST: Date: 12/14/2019 COMPARISON: 07/03/2019. HISTORY: Shortness of breath. Low back pain radiating down left leg. Previous surgery. FINDINGS: Limited evaluation due to extensive metallic susceptibility artifact from bilateral transpedicular sc rews at L2, L3, L4, and L5. Persistent Grade I anterolisthesis of L4 upon L5 (5 mm). Interval posteri or laminectomy defect at L2-L3, L3-L4, and L4-L5. There is a large fluid collection at the operative site. Findings may represent postsurgical change. However, an infected fluid collection cannot be exc luded. Clinical correlation is essential. No evidence of high grade central canal stenosis throughout the lumbar spine. Limited evaluation of t he neural foramina due to metallic susceptibility artifact. Stable bilateral foraminal narrowing when compared to the previous examination at L4-L5. IMPRESSION: 1. Extensive postoperative changes with a T2 hyperintense fluid collection at the operative site. Po stoperative changes are suspected. However, an infected fluid collection cannot be excluded. 2. No significant central canal stenosis throughout the lumbar spine. 3. Stable bilateral neural foraminal narrowing at L4-L5. This report is in agreement with the initial report by [facility]. Postcontrast imaging and general surgical consultation would be beneficial if clinically warranted. POS: [facility]
== END 2019-12-15 01:30 | disposition home or self-care (01) ==
LOC: ERS 22:48
DX: M54.5 Low back pain (principal); R06.02 Shortness of breath; I10 Essential (primary) hypertension; J44.9 Chronic obstructive pulmonary disease, unspecified; E78.00 Pure hypercholesterolemia, unspecified; F41.9 Anxiety disorder, unspecified; Z79.52 Long term (current) use of systemic steroids; Z79.899 Other long term (current) drug therapy
CPT/HCPCS: 36415; 71045; 72148; 80053; 83880; 84484; 85025; 93005; 94760; J7620

== ENCOUNTER 2019-12-23 09:00 | Emergency (ER) | payer BC, MEDICARE ==
[2019-12-23] MEDS ORDERED: Albuterol Sulfate 2.5 mg/3 ml Neb ONE ×2 (09:18)
[2019-12-23] MEDS ORDERED: Albuterol Sulfate 2.5 mg/0.5 ml Neb ONE ×2 (09:19)
[2019-12-23] MEDS ORDERED: Furosemide 40 MG/4 ML VIAL ONE (10:06)
[2019-12-23] MEDS ORDERED: Aspirin Chewable 81 MG TAB ONE (10:06)
--- NOTE | 2019-12-23 10:51 | RAD ---
CHEST 1 VIEW PORTABLE: Date: 12/23/2019 HISTORY: Shortness of breath. COMPARISON: 12/14/2019. FINDINGS: Anterior cervical fusion changes of the cervicothoracic junction. Heart size is within normal limits. The lungs are clear of acute process. IMPRESSION: No significant acute intrathoracic disease. No evidence for pneumonia. Stable from prior study. POS: [facility]
[2019-12-23 10:59] LABS: #Eosinphils 1.2 thou/uL (0.0-0.7); #Lymphocytes 2.6 thou/uL (1.20-3.40); #Monocytes 1.3 thou/uL (0.11-0.59); #Neutrophils 8.4 thou/uL (1.40-6.50); %Basophils 0.3 % (0.0-1.0); %Eosinophils 8.6 % (0.0-10.0); %Monocytes 9.8 % (0.0-10.0); %Neutrophils 62.2 % (42.0-75.0); Hemoglobin 11.5 g/dL (12.0-16.0); Mean Corpuscular HGB CONC 31.8 g/dL (32.0-36.0); Mean Corpuscular Hemoglobin 26.4 pg (27.0-31.0); Mean Platelet Volume 7.6 fL (7.4-10.4); Platelet Count 400 thou/uL (130-400); RBC Distribution Width 15.8 % (11.5-14.5); Red Blood Cell (RBC) Count 4.37 mill/uL (4.20-5.40); White Blood Cell (WBC) Count 13.4 thou/uL (4.8-10.8)
[2019-12-23 11:16] LABS: ALT (SGPT) 19 U/L (8-55); AST (SGOT) 15 U/L (5-34); Albumin 3.5 g/dL (3.5-5.0); Alkaline Phosphatase 70 U/L (40-110); Anion Gap 13 mmol/L (10-20); BUN (Urea Nitrogen) 14 mg/dL (7.0-18.7); Bilirubin, Total 0.3 mg/dL (0.2-1.2); Calc. Creatinine Clearance 0 mL/min (70-130); Carbon Dioxide 26 mmol/L (22-29); Chloride 105 mmol/L (98-107); Estimated GFR-MDRD 90; Globulin 3.5 g/dL (2.4-3.5); Glucose 96 mg/dL (70-105); Potassium 3.7 mmol/L (3.5-5.1); Sodium 140 mmol/L (136-145)
[2019-12-23] MEDS ORDERED: Magnesium 2 GM/50 ML BAG (IN WATER) ONE (11:31)
[2019-12-23] MEDS ORDERED: methylPREDNISolone Sod Succ/PF 125 MG/2 ML VIAL ONE (11:31)
[2019-12-23] MEDS ORDERED: Morphine 4 MG/ML VIAL ONE (11:31)
[2019-12-23 12:51] LABS: Troponin I Less than 0.010 ng/mL (< 0.028)
== END 2019-12-23 13:57 | disposition home or self-care (01) ==
LOC: ERS 09:00
DX: R60.0 Localized edema (principal); E78.00 Pure hypercholesterolemia, unspecified; I10 Essential (primary) hypertension; J44.9 Chronic obstructive pulmonary disease, unspecified; I25.2 Old myocardial infarction; F41.9 Anxiety disorder, unspecified; I25.10 Atherosclerotic heart disease of native coronary artery without angina pectoris; Z87.891 Personal history of nicotine dependence; Z79.891 Long term (current) use of opiate analgesic; Z79.899 Other long term (current) drug therapy
CPT/HCPCS: 36415; 71045; 80053; 83880; 84484; 85025; 93005; 94644; 96365; 96375; J1940; J2270; J2930; J3475; J7611